=== PATIENT | male | born 1995 | race African-American/Black ===

== ENCOUNTER 2016-03-18 10:11 | Emergency (ER) | payer SELFPAY ==
[~2016-03-18] VITALS: Ht 167.6 cm; Wt 75.0 kg
[2016-03-18 10:13] VITALS: BP 130/77; PULSE 70; RESP 12; TEMP 98; O2SAT 99
--- NOTE | 2016-03-18 12:29 | PD ---
HPI Chief Complaint: Laceration/Skin Injury Time Seen by Provider: 12:29 Travel History International Travel<30 days: No Contact w/Intl Traveler<30days: No Traveled to known affect area: No History of Present Illness HPI 20-year-old male presents to the emergency department for evaluation of right hand lacerations. The patient states that last night he was upset and punched a window and broke the glass. States that he caught his right hand fifth finger and near his wrist. Denies any painful range of motion, swelling, fever , chills, numbness or tingling. States that the cut on his fifth finger has continued to bleed which is why he came in for evaluation. Unsure of last tetanus vaccination. No other complaints. [facility] Social History Tobacco Use: No Allergies-Medications (Allergen,Severity, Reaction): Coded Allergies: No Known Allergies (Unverified , 03/18/16) Reported Meds & Prescriptions Reported Meds & Active Scripts Active Keflex (Cephalexin) 500 Mg Cap 500 Mg PO Q12H 7 Days Review of Systems Except as stated in HPI: all other systems reviewed are Neg Physical Exam Narrative GENERAL: Well-nourished and well-developed pleasant male patient in no acute distress who is nontoxic appearing. SKIN: Warm and dry. HEAD: Normocephalic and atraumatic. EYES: No injection, drainage, or hyphema noted. PERRLA. EOMI. ENT: No nasal drainage noted. Oropharynx is clear. NECK: Supple and the trachea is midline. CARDIOVASCULAR: Regular rate and rhythm. RESPIRATORY: Breath sounds are equal bilaterally with no accessory muscle use, wheezing, rhonchi, or crackles. EXTREMITY: Right hand fifth finger 1 cm laceration to dorsal distal aspect over the DIP. There is some tissue avulsion at this laceration as well. Superficial tissue avulsion to the volar proximal ulnar hand about 1 cm. Full range of motion in all joints. No joint swelling/injury. Normal opposition of thumb. Distal extremity neurovascularly intact with intact two point discrimination. NEUROLOGICAL: Awake, alert, and oriented. Normal speech and gait. Cranial nerves are grossly intact. Data Data Last Documented VS Vital Signs Date Time Temp Pulse Resp B/P Pulse Ox O2 Delivery O2 Flow Rate FiO2 03/18/16 10:13 98.0 70 12 130/77 99 Orders Wound Care (03/18/16 13:26) Tetanus/Diphtheria Tox Adult (Tetanus/Di (03/18/16 13:30) [facility] Medical Decision Making Medical Screen Exam Complete: Yes Emergency Medical Condition: Yes Differential Diagnosis Laceration versus superficial versus deep versus avulsion Narrative Course 20-year-old male presents to the emergency department for evaluation of laceration to right hand. Patient is afebrile, vital signs are stable. The patient has a superficial laceration to the fifth finger and a tissue avulsion to the proximal aspect of the hand near the wrist. Laceration repair is performed with sutures on the finger, see procedure narrative. The area was cleansed with Betadine and saline, sterile dressing applied. Tetanus vaccination was updated here in the ED. As the patient's laceration occurred over [address] the patient on prophylactic antibiotics. He is stable for discharge. Procedures Procedure Narrative LACERATION LOCATION: Dorsal right fifth finger over DIP LENGTH: 1 cm NUMBER OF STITCHES/HERNAN: 3 sutures REPAIR: The area of the laceration was prepped with Betadine and sterilely draped. The laceration was infiltrated with 1% lidocaine. The wound was copiously irrigated and explored without evidence of foreign body, tendon injury or neurovascular injury. The wound was closed using 4. 0 Ethilon. This was a single layer repair. A sterile dressing was applied. The patient was advised to keep the dressing clean and dry. Patient tolerated the procedure well. Diagnosis Primary Impression: Finger laceration Qualified Code: S61.219A - Finger laceration, initial encounter Additional Impression: Skin avulsion Referrals: Primary Care Physician Patient Instructions: Finger Laceration (ED), General Instructions Additional Instructions: Keep wound clean and dry. Wash gently with soap and water. Apply topical antibiotic or twice daily. Have sutures removed in 7 days. Take medication as prescribed with food and a full glass of water. Follow-up with your Primary Care Physician. Return to the ED for any acute worsening of symptoms. Med/Other Pt SpecificInfo: Prescription(s) given Scripts Cephalexin (Keflex)500 Mg [id number] Mg PO Q12H 7 Days Ref 0 Prov:Osorio Inman MD 03/18/16 Disposition: 01 DISCHARGE HOME Condition: Stable Homa Gonzalez Mar 18, 2016 12:29
[2016-03-18] MEDS ORDERED: CEPH-460 PO (13:27)
[2016-03-18] MEDS ORDERED: TETANUS/DIPHTHERIA TOXOID ADULT 0.5 ML VIAL IM ONE (13:30)
== END 2016-03-18 13:50 | disposition home or self-care (01) ==
LOC: NEPB 10:11
DX: S61.219A Laceration without foreign body of unspecified finger without damage to nail, initial encounter (principal); S61.411A Laceration without foreign body of right hand, initial encounter; Z23 Encounter for immunization; W25.XXXA Contact with sharp glass, initial encounter; Y93.89 Activity, other specified; Y92.89 Other specified places as the place of occurrence of the external cause; Y99.8 Other external cause status
CPT/HCPCS: 12001; 90471; 90714

== ENCOUNTER 2016-03-25 15:06 | Emergency (ER) | payer SELFPAY ==
[~2016-03-25] VITALS: Ht 175.3 cm; Wt 76.4 kg
[~2016-03-25 15:06] MED LIST: CEPH-460 PO
[2016-03-25 15:08] VITALS: BP 112/69; PULSE 82; RESP 15; TEMP 98.1; O2SAT 98
--- NOTE | 2016-03-25 15:53 | PD ---
HPI Chief Complaint: Wound/Suture/Staple Re-Check Time Seen by Provider: 15:50 Travel History International Travel<30 days: No Contact w/Intl Traveler<30days: No Traveled to known affect area: No History of Present Illness HPI Patient is a 20-year-old male presenting for suture removal. One week prior he suffered a minor laceration to the right fifth finger. [address] Patient denies any pain, swelling, drainage, paresthesia, weakness or loss of range of motion. He has no new complaints at this time. [facility] [place] Past Medical History Medical History: Denies Significant Hx Diminished Hearing: No Immunizations Current: Yes Past Surgical History Surgical History: No Previous Surgery Social History Alcohol Use: No Tobacco Use: No Substance Use: No Allergies-Medications (Allergen,Severity, Reaction): Coded Allergies: No Known Allergies (Unverified , 03/25/16) Reported Meds & Prescriptions Reported Meds & Active Scripts Active No Active Prescriptions or Reported Medications Review of Systems General / Constitutional: No: Fever Musculoskeletal: No: Limited ROM Skin: Positive Other (see the history of present illness) Neurologic: No: Sensory Disturbance Physical Exam Narrative GENERAL: Well-developed and well-nourished adult male in no acute distress. SKIN: Warm and dry. Good turgor without tenting. HEAD: Normocephalic and atraumatic. CARDIOVASCULAR: Radial pulses 2+ bilaterally. Capillary refill less than 2 seconds tip of the right fifth finger. RESPIRATORY: No distress or use of accessory muscles. MUSCULOSKELETAL: Right fifth finger has [address] over the dorsum of the digit distally. There is no dehiscence, edema, discharge, erythema or warmth. No tenderness to palpation. Normal range of motion in the digit. No gait disturbances. Patient freely moving all four extremities spontaneously. Extremities without clubbing, cyanosis, or edema. No obvious deformities. NEUROLOGIC: CN II-XII grossly intact. Awake and alert. Motor grossly within normal limits. Sensation intact distal tip of the fifth finger right hand. Data Data Last Documented VS Vital Signs Date Time Temp Pulse Resp B/P Pulse Ox O2 Delivery O2 Flow Rate FiO2 03/25/16 15:08 98.1 82 15 112/69 98 MDM Medical Decision Making Medical Screen Exam Complete: Yes Emergency Medical Condition: Yes Differential Diagnosis Suture removal versus wound dehiscence versus wound infection Narrative Course Patient's 20-year-old male with a superficial laceration suffered one week ago. 3 sutures were placed here. They're still in place. No evidence of infection or dehiscence. The patient denies any concerns or problems. All 3 sutures were removed without complication.See discharge paperwork for further instructions. The plan was discussed with the patient who acknowledged their understanding and agreement. Reinforced the follow-up with primary care is critically important. Patient instructed on emergent conditions that should prompt return to ED. Diagnosis Primary Impression: Visit for suture removal Patient Instructions: General Instructions Scripts No Active Prescriptions or Reported Meds Disposition: 01 DISCHARGE HOME Condition: Stable Martinez Navarro III Mar 25, 2016 15:53
== END 2016-03-25 16:10 | disposition home or self-care (01) ==
LOC: NEPB 15:06
DX: Z48.02 Encounter for removal of sutures (principal)
CPT/HCPCS: 99281